=== PATIENT | female | born 1975 | race Caucasian/White ===

== ENCOUNTER 2023-08-13 09:36 | Day surgery (SDC) | payer BC ==
[2023-08-13] MEDS: Lactated Ringers 1,000 ML IV SCH (09:51)
[2023-08-13] MEDS ORDERED: Ondansetron 4 MG/2 ML SDV ONE (10:00)
[2023-08-13] MEDS ORDERED: Midazolam 1 MG/ML 2 ML SDV ONE (10:00)
[2023-08-13] MEDS ORDERED: Flumazenil 0.1 MG/ML 10 ML MDV ONE (10:00)
[2023-08-13] MEDS ORDERED: fentaNYL 50 MCG/ML SDV ONE (10:00)
[2023-08-13] MEDS ORDERED: Ketamine 200 MG/20 ML MDV ONE (10:00)
[2023-08-13] MEDS ORDERED: Propofol 200 MG/20 ML SDV ONE (10:00)
[2023-08-13 11:05] VITALS: BP 109/60; PULSE 68
== END 2023-08-13 11:10 | disposition home or self-care (01) ==
LOC: CC.SDS 09:36
PROVIDERS: ATTEND Family Medicine
DX: K52.9 Noninfective gastroenteritis and colitis, unspecified (principal); K21.9 Gastro-esophageal reflux disease without esophagitis; F41.9 Anxiety disorder, unspecified; F32.A Depression, unspecified; Z79.899 Other long term (current) drug therapy; Z88.1 Allergy status to other antibiotic agents
CPT/HCPCS: 00811; J2250; J2405; J2704; J3010; J3490; J7120

== ENCOUNTER 2024-06-07 10:55 | Day surgery (SDC) | payer BC ==
[2024-06-07] MEDS ORDERED: Lidocaine 2% 20 ML MDV ONE (11:45)
[2024-06-07] MEDS ORDERED: Propofol 200 MG/20 ML SDV ONE (11:45)
[2024-06-07] MEDS ORDERED: fentaNYL 50 MCG/ML SDV ONE (11:45)
[2024-06-07] MEDS ORDERED: Ketamine 200 MG/20 ML MDV ONE (11:45)
[2024-06-07] MEDS ORDERED: Ondansetron 4 MG/2 ML SDV ONE (11:45)
[2024-06-07] MEDS ORDERED: Sodium Chloride 0.9% 10 ML Syringe FLUSH PRN (12:30)
[2024-06-07 14:05] VITALS: BP 113/68; PULSE 61
== END 2024-06-07 13:00 | disposition home or self-care (01) ==
LOC: CC.SDS 10:55
PROVIDERS: ATTEND Family Medicine
DX: K29.50 Unspecified chronic gastritis without bleeding (principal); K31.7 Polyp of stomach and duodenum; K21.9 Gastro-esophageal reflux disease without esophagitis; K44.9 Diaphragmatic hernia without obstruction or gangrene; F32.A Depression, unspecified; F41.9 Anxiety disorder, unspecified; Z79.899 Other long term (current) drug therapy
CPT/HCPCS: 00731; 87081; J2405; J2704; J3010; J3490